=== PATIENT | female | born 1990 | race Caucasian/White ===

== ENCOUNTER 2017-02-13 12:37 | Emergency (ER) | payer BC, OTHER ==
[~2017-02-13 12:37] MED LIST: HYDR-971 PO
[2017-02-13] MEDS ORDERED: IV NORMAL SALINE 1,000ML 1,000 ML IV SCH (13:33)
[2017-02-13 13:50] LABS: BACTERIA,URINE 0 /HPF (0-FEW); BILIRUBIN,URINE NEG (NEG); CLARITY,URINE CLEAR; COLOR,URINE YELLOW; GLUCOSE,URINE NEG (NEG); NITRITE,URINE NEG (NEG); RBC,URINE RARE /HPF (0-2); SQUAMOUS EPITHELIAL CELL,UR OCC /LPF; UROBILINOGEN,URINE 0.2 mg/dL (0.2 mg/dL); WBC,URINE RARE /HPF (0-4)
[2017-02-13 13:56] LABS: BASO # 0.1 x10^3/uL (0.0-0.2); BASO % 1 % (0-3); EOS # 0.1 x10^3/uL (0.0-0.7); EOS % 1 % (0-3); HEMATOCRIT 45.3 % (36.0-47.0); HEMOGLOBIN 15.8 g/dL (12.0-15.5); LYMPH # 2.6 x10^3/uL (1.0-4.8); LYMPH % 31 % (24-48); MEAN CORPUSCULAR HEMOGLOBIN 30 pg (25-35); MEAN CORPUSCULAR HGB CONC 35 g/dL (31-37); MEAN CORPUSCULAR VOLUME 86 fL (79-100); MONO # 0.5 x10^3/uL (0.0-1.1); MONO % 6 % (0-9); NEUT # 5.1 x10^3uL (1.8-7.7); NEUT % 61 % (31-73); PLATELET COUNT 283 x10^3/uL (140-400); RED CELL DISTRIBUTION WIDTH 14.3 % (11.5-14.5); WHITE BLOOD COUNT 8.3 x10^3/uL (4.0-11.0)
[2017-02-13] MEDS ORDERED: KETOROLAC 30 MG/ML VIAL. IV ONE (14:00)
[2017-02-13 14:17] LABS: ALBUMIN 4.2 g/dL (3.4-5.0); CALCIUM 9.4 mg/dL (8.5-10.1); CREATININE 0.7 mg/dL (0.6-1.0); DIRECT BILIRUBIN 0.1 mg/dL (0.0-0.2); GFR 102.8; POTASSIUM 4.1 mmol/L (3.5-5.1); TOTAL BILIRUBIN 0.8 mg/dL (0.2-1.0); TOTAL PROTEIN 8.5 g/dL (6.4-8.2)
[2017-02-13 14:50] VITALS: BP 131/66
--- NOTE | 2017-02-13 14:50 | RAD ---
Transabdominal and transvaginal sonography of the pelvis. Indications: Heavy bleeding started yesterday. Quantitative beta hCG is less than 1. Pelvic pain. Transabdominal sonography: The uterus is anteverted in position. The longitudinal and AP and transverse dimensions of the uterus are 7.6 cm and 3.6 cm and 5.3 cm respectively. The endometrial canal is poorly visualized. Therefore, transvaginal sonography will be performed. The left ovary measures 2.2 cm and 2.3 cm and 2.3 cm in size and is normal. Color Doppler flow is seen within the left ovary. The right ovary measures 2.4 cm and 2.8 cm and 3.1 cm in size and is normal. Color Doppler flow is seen within the right ovary. No free fluid or adnexal mass is seen. Transvaginal sonography: No uterine mass or fibroid is seen. The endometrial canal measures 6 cm in thickness which is normal. Small nabothian cysts are seen. Both ovaries are normal. No adnexal mass is seen. IMPRESSION: Unremarkable pelvic sonogram.
[2017-02-13] MEDS ORDERED: IBUP800T19 PO (15:12)
--- NOTE | 2017-02-13 15:12 | PHYS DOC ---
General Chief Complaint: VAGINAL BLEEDING Stated Complaint: VAGINAL BLEEDING Time Seen by MD: 13:17 Source: patient Exam Limitations: no limitations Problems: History of Present Illness Initial Comments Patient is a 26-year-old female who comes to the ED complaining of vaginal bleeding. Patient states that she has history of irregular menses, states she had Mirena IUD removed January 05. Her boyfriend recently returned from deployment and she has unprotected sex but states a home test was negative. She called her [employer] today and they requested that she go to the nearest emergency department for evaluation. Patient states that she's had low abdominal cramping and heavy vaginal bleeding states she's been changing super absorbency tampons every hour. She says she has bled through her clothes several times and became short of breath and lightheaded at work with minimal exertion. 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) Social History Smoker: non-smoker Alcohol: occasionally Drugs: none Review of Systems Constitutional: denies chills, denies diaphoresis, denies fever, malaise Respiratory: see HPI, denies cough, denies wheezing Cardiovascular: denies chest pain, denies palpitations, denies syncope Gastrointestinal: denies diarrhea, denies nausea, denies vomiting Genitourinary: see HPI Musculoskeletal: denies back pain, denies joint swelling, denies neck pain Psychiatric/Neurological: denies headache, denies numbness, denies paresthesia Physical Exam General Appearance: WD/WN, no apparent distress Neck: non-tender, supple Cardiovascular/Respiratory: regular rate, rhythm, normal peripheral pulses, normal breath sounds, no respiratory distress Gastrointestinal: normal bowel sounds, soft Pelvic: other (deferred) Back: no CVA tenderness, no vertebral tenderness Extremities: non-tender, normal inspection 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 PHYSICIAN: DONOVAN JJ DO REASON: pelvic pain/bleeding, PROCEDURE: US PELVIS W/TV Transabdominal and transvaginal sonography of the pelvis. Indications: Heavy bleeding started yesterday. Quantitative beta hCG is less than 1. Pelvic pain. Transabdominal sonography: The uterus is anteverted in position. The longitudinal and AP and transverse dimensions of the uterus are 7.6 cm and 3.6 cm and 5.3 cm respectively. The endometrial canal is poorly visualized. Therefore, transvaginal sonography will be performed. The left ovary measures 2.2 cm and 2.3 cm and 2.3 cm in size and is normal. Color Doppler flow is seen within the left ovary. The right ovary measures 2.4 cm and 2.8 cm and 3.1 cm in size and is normal. Color Doppler flow is seen within the right ovary. No free fluid or adnexal mass is seen. Transvaginal sonography: No uterine mass or fibroid is seen. The endometrial canal measures 6 cm in thickness which is normal. Small nabothian cysts are seen. Both ovaries are normal. No adnexal mass is seen. IMPRESSION: Unremarkable pelvic sonogram. DICTATED AND SIGNED BY: JANA MORRELL MD DATE: 02/13/17 1440 CC: NEO DELEON BRAD K DO ~ Labs normal hemoglobin stable 15.8 I discussed the treatment plan with the patient. I discussed prescription and [id number] medications as well as follow-up with her specialist. I discussed signs and symptoms to monitor as well as indications for urgent return. She expressed agreement and understanding with the treatment plan. Departure Time of Disposition: 15:04 Disposition: 01 HOME, SELF-CARE Diagnosis: menorrhagia, right otitis media Condition: STABLE Patient Instructions: Menorrhagia, [id number], Otitis Media, Adult Additional Instructions: Off work until seen by your body repairer. As discussed, your ultrasound was normal. Your blood work revealed no evidence of anemia and there was a small amount of blood noted in her urine. Will prescribe high-dose ibuprofen to decrease blood flow to the uterine arteries to decrease bleeding and discomfort. Rx: ibuprofen 800mg, bactrim ds Take meds with food. Call your body repairer today to schedule next available appointment. Return to ED with new or changing symptoms. DONOVAN JJ DO Feb 13, 2017 15:12
[2017-02-13] MEDS ORDERED: SULF1TAB24 PO (15:21)
== END 2017-02-13 15:21 | disposition home or self-care (01) ==
LOC: ER 12:37
DX: N92.0 Excessive and frequent menstruation with regular cycle (principal); H66.91 Otitis media, unspecified, right ear; Z88.0 Allergy status to penicillin; Z88.8 Allergy status to other drugs, medicaments and biological substances
CPT/HCPCS: 36415; 76830; 76856; 80048; 80076; 81001; 81025; 84702; 85025; 96361; 96374; 99285; J1885; J7030

== ENCOUNTER → 2017-05-13 | Outpatient (CLI) | payer BC, OTHER ==
[~2017-05-13] MED LIST changes: +IBUP800T19 PO; +SULF1TAB24 PO
--- NOTE | 2017-05-13 09:22 | RAD ---
DATE: 05/13/2017 EXAM: DIGITAL DIAGNOSTIC LT, BREAST LEFT HISTORY: Pain in the left breast COMPARISON: None available This study was interpreted with the benefit of Computerized Aided Detection (CAD). FINDINGS: Breast Density: HETERO The breast parenchyma Is heterogeneouslyy dense, which could reduce sensitivity of mammography. Breast parenchyma level C. There are no dominant suspicious masses, suspicious microcalcifications or evidence of architectural distortion. Ultrasound the left breast at site of palpability including 1:00, 12:00, 3:00 position demonstrated no definite evidence of mass or lesion. IMPRESSION: Benign findings BI-RADS CATEGORY: 2 BENIGN FINDING RECOMMENDED FOLLOW-UP: CLIN FOLLOW UP IMAGING CLINICALLY INDICATED PQRS compliance statement: Patient information was entered into a reminder system with a target due date when the patient is due for her screening mammogram for the next mammogram. Mammography is a sensitive method for finding small breast cancers, but it does not detect them all and is not a substitute for careful clinical examination. A negative mammogram does not negate a clinically suspicious finding and should not result in delay in biopsying a clinically suspicious abnormality. "Our facility is accredited by the [employer] Mammography Program."
== END | disposition home or self-care (01) ==
LOC: US 08:09
PROVIDERS: ATTEND Nurse Practitioner Family
DX: N64.4 Mastodynia (principal)
CPT/HCPCS: 76641; 77065